=== PATIENT | male | born 2000 | race Caucasian/White ===

== ENCOUNTER 2022-08-06 20:57 | Emergency (ER) | payer SELFPAY ==
[~2022-08-06] VITALS: Ht 182.9 cm; Wt 96.8 kg
[~2022-08-06 20:57] MED LIST: CARAFATE S1 GM/10 ML PO
[2022-08-06 21:04] VITALS: TEMP 99
[2022-08-06] MEDS ORDERED: SEROQUEL 200MG200 MG PO (21:08)
[2022-08-06 21:31] LABS: BASO % 0.4 % (0.0-2.0); EOS # 0.1 K/mm3 (0.0-0.7); EOS % 0.7 % (0.0-4.0); GRAN # 5.2 K/mm3 (1.4-6.5); HEMATOCRIT 46.2 % (42.0-52.0); HEMOGLOBIN 16.4 g/dl (13.5-18.0); LYMPH # 1.2 K/mm3 (1.2-3.4); LYMPH % 17.1 % (20.0-51.0); MEAN CELL VOLUME 88 fl (80.0-100.0); MEAN CORPUSCULAR HEMOGLOBIN 31 pg (27-31); MEAN CORPUSCULAR HGB CONC 36 g/dl (33.0-37.0); MEAN PLATELET VOLUME 10.2 fl (7.4-10.4); MONO # 0.5 K/mm3 (0.1-0.6); MONO % 7.5 % (1.7-9.3); PLATELET COUNT 216 K/mm3 (130-400); RED BLOOD COUNT 5.27 M/mm3 (4.20-5.60); REDCELL DISTRIBUTION WIDTH-CV 12.2 % (11.5-14.5)
[2022-08-06 21:50] LABS: ALBUMIN 4.3 gm/dL (3.5-5.0); BILIRUBIN,TOTAL 0.3 mg/dL (0.2-1.2); C-REACTIVE PROTEIN 0.09 mg/dL (0.00-0.50); CALCIUM 9.7 mg/dL (8.4-10.2); CREATININE, serum 1.75 mg/dL (0.72-1.25); POTASSIUM 4.4 mmol/L (3.5-4.5); TOTAL PROTEIN 7.5 gm/dL (6.2-8.1)
[2022-08-06 22:23] LABS: COLLECTION METHOD CLEAN CATCH
[2022-08-06 22:27] LABS: URINE APPEARANCE Clear (CLEAR/HAZY); URINE COLOR Yellow (YELLOW)
[2022-08-06 22:28] LABS: PH 6.5 (5.0-8.5); URINE BLOOD Negative (NEGATIVE); URINE GLUCOSE Negative (NEGATIVE); URINE KETONE 1+ (NEGATIVE); URINE NITRATE Negative (NEGATIVE); URINE PROTEIN(semi-quant) Negative (NEGATIVE); URINE UROBILINOGEN 0.2 E.U/dL (0.2-1.0)
[2022-08-06] MEDS ORDERED: PHENERGAN 25 TA25 MG PO (22:28)
[2022-08-06 22:30] LABS: MUCOUS Present (NOT PRESENT); SQUAMOUS EPITHELIAL 0-2 /hpf (0-10); URINE BACTERIA None Seen /hpf (NONE SEEN); URINE RBC None Seen /hpf (0-2)
[2022-08-06 22:54] VITALS: BP 116/75; PULSE 91
== END 2022-08-06 22:57 | disposition home or self-care (01) ==
LOC: COL.ER 20:57
PROVIDERS: Family Medicine
DX: K52.9 Noninfective gastroenteritis and colitis, unspecified (principal); E86.0 Dehydration
CPT/HCPCS: J2550; J7030; J7120

== ENCOUNTER 2023-12-15 11:17 | Emergency (ER) | payer SELFPAY ==
[~2023-12-15] VITALS: Ht 182.9 cm; Wt 95.5 kg
[~2023-12-15 11:17] MED LIST changes: +PHENERGAN 25 TA25 MG PO; +SEROQUEL 200MG200 MG PO
[2023-12-15 11:21] VITALS: TEMP 98.6
[2023-12-15] MEDS ORDERED: Tetracaine 0.5% Ophth Soln 4 ML BOTTLE OP ONE (14:00)
[2023-12-15] MEDS ORDERED: FLOXIN OTIC DROP5 ML OU (14:32)
[2023-12-15 15:05] VITALS: BP 164/79; PULSE 91
== END 2023-12-15 15:05 | disposition home or self-care (01) ==
LOC: COL.ER 11:17
DX: T65.91XA Toxic effect of unspecified substance, accidental (unintentional), initial encounter (principal); H10.213 Acute toxic conjunctivitis, bilateral; Y92.89 Other specified places as the place of occurrence of the external cause

== ENCOUNTER 2023-12-19 15:13 | Emergency (ER) | payer SELFPAY ==
[~2023-12-19] VITALS: Ht 182.9 cm; Wt 95.5 kg
[~2023-12-19 15:13] MED LIST changes: +FLOXIN OTIC DROP5 ML OU
[2023-12-19 15:52] VITALS: BP 117/83; PULSE 112; TEMP 99.1
== END 2023-12-19 15:50 | disposition home or self-care (01) ==
LOC: COL.ER 15:13
DX: Z77.098 Contact with and (suspected) exposure to other hazardous, chiefly nonmedicinal, chemicals (principal)

== ENCOUNTER 2024-02-08 14:08 | Emergency (ER) | payer OTHER ==
[~2024-02-08] VITALS: Ht 185.4 cm; Wt 90.9 kg
[2024-02-08 14:13] VITALS: TEMP 97.8
[2024-02-08] MEDS ORDERED: diphenhydrAMINE 50 MG/ML 1 ML VIAL IV ONE (15:15)
[2024-02-08] MEDS ORDERED: Ketorolac 30 MG/ML VIAL IV ONE (15:15)
[2024-02-08] MEDS ORDERED: Ondansetron 4 MG/2 ML VIAL IV ONE (15:15)
[2024-02-08 16:05] VITALS: BP 109/60; PULSE 76
== END 2024-02-08 16:05 | disposition home or self-care (01) ==
LOC: COL.ER 14:08
DX: G44.209 Tension-type headache, unspecified, not intractable (principal)
CPT/HCPCS: J1200; J1885; J2405